=== PATIENT | male | born 1955 | race Caucasian/White ===

== ENCOUNTER 2021-10-23 00:33 | Emergency (ER) | payer MEDICAID ==
[~2021-10-23] VITALS: Ht 180.3 cm; Wt 90.0 kg
[2021-10-23] MEDS ORDERED: NITR0.4T49 SL (01:38)
[2021-10-23 02:02] VITALS: BP 120/72
== END 2021-10-23 02:04 | disposition left against medical advice (07) ==
LOC: ER 00:33
DX: R07.89 Other chest pain (principal); E11.65 Type 2 diabetes mellitus with hyperglycemia; Z98.61 Coronary angioplasty status
CPT/HCPCS: 82962; 93005; 99283